=== PATIENT | female | born 1995 | race Caucasian/White ===

== ENCOUNTER → 2016-05-27 | Outpatient (CLI) | payer BC ==
[~2016-05-27] MED LIST: BCPILLS PO; HYDR-5688 PO
--- NOTE | 2016-05-27 13:56 | MAMMOGRAPHY REPORT ---
ULTRASOUND OF LEFT BREAST: 05/27/2016 CLINICAL HISTORY: The patient reports a palpable lump in her left breast for a few months. She feel s that it is less prominent currently than when she first felt it. COMPARISON: No prior exams were available for comparison. TECHNIQUE: Real-time targeted ultrasound of the left breast was performed. FINDINGS: Real-time, high resolution targeted ultrasound was performed of the area of the palpable lump pointe d out by the patient, in the left breast at 1:00, approximately 7 cm from the nipple. Sonographical ly normal tissue is seen in this region, with no suspicious solid or cystic mass seen. IMPRESSION: ACR BI-RADS CATEGORY 1: NEGATIVE No suspicious sonographic abnormality at the site of the palpable left breast lump pointed out by th e patient. There is no sonographic evidence of malignancy. Recommend clinical follow-up. The vazquez ent was verbally notified of the results. Yaneli Jasso M.D. ah/:05/27/2016 11:15:15 Special Needs Librarian: Yaneli Jasso MD, [facility] letter sent: Normal 1/2 BI-RADS Code: ACR BI-RADS Category 1: Negative
== END | disposition home or self-care (01) ==
LOC: C.MAMM 10:56
PROVIDERS: ATTEND Obstetrics & Gynecology
DX: N63 Unspecified lump in breast (principal)

== ENCOUNTER → 2016-06-11 | Outpatient (CLI) | payer BC ==
--- NOTE | 2016-06-11 15:46 | DIAGNOSTIC IMAGING REPORT ---
CHEST 2 VIEWS ROUTINE CLINICAL HISTORY: Cough. COMPARISON STUDY: Chest radiograph October 24, 2012. FINDINGS: Lung volumes are normal. Lungs are clear. There is no pneumothorax or pleural effusion. Cardiac size is normal. Mediastinal contours are normal. There is no evidence of pulmonary edema. IMPRESSION: No acute cardiopulmonary findings. Electronically signed by: Rey Toney M.D. 06/11/2016 3:45 PM Dictated Date/Time: 06/11/2016 3:44 PM
== END | disposition home or self-care (01) ==
LOC: C.RAD1850 15:36
PROVIDERS: ATTEND Family Medicine
DX: R05 Cough (principal)

== ENCOUNTER → 2016-07-09 | Outpatient (CLI) | payer BC ==
--- NOTE | 2016-07-09 11:16 | DIAGNOSTIC IMAGING REPORT ---
ULTRASOUND ABDOMEN COMPLETE CLINICAL HISTORY: Right upper quadrant abdominal pain. COMPARISON STUDY: No priors. TECHNIQUE: Real-time, grayscale, and color flow sonography of the abdomen was performed. Images are reviewed in the transverse and longitudinal planes. FINDINGS: Liver: The liver is normal in size and echotexture. There is no intrahepatic biliary ductal dilatation. The main portal vein is patent. Gallbladder: Small mobile gallstones are identified and there is minimal biliary sludge. The gallbladder is otherwise normal in appearance. There is no gallbladder wall thickening or pericholecystic fluid. A sonographic Yeager's sign is reportedly absent. The common bile duct measures up to 0.2 cm in diameter. Pancreas: Visualized portions of the pancreatic head and body are normal in appearance. Spleen: The spleen is normal in size and echotexture, measuring 11.0 cm in length. Kidneys: The kidneys are normal in size and echotexture. There is no hydronephrosis. The right kidney measures 11.5 cm in length and the left kidney measures 11.2 cm in length. No shadowing calculi are identified. Abdominal vasculature: Visualized portions of the abdominal aorta and IVC are normal in appearance. Ascites: None. IMPRESSION: Cholelithiasis and biliary sludge. There is no sonographic evidence of acute cholecystitis. Electronically signed by: Tejas Hoover M.D. 07/09/2016 11:15 AM Dictated Date/Time: 07/09/2016 11:13 AM
== END | disposition home or self-care (01) ==
LOC: C.ULTR 10:13
PROVIDERS: ATTEND Student in an Organized Health Care Education/Training Program
DX: K80.20 Calculus of gallbladder without cholecystitis without obstruction (principal); R10.11 Right upper quadrant pain

== ENCOUNTER 2016-07-29 05:14 | Observation (INO) | payer BC ==
[2016-07-23 07:42] VITALS: BMI 25.0
[2016-07-29] VITALS (9 sets, daily range): BP systolic 110–152; BP diastolic 71–97; PULSE 54–94; TEMP 36.4–36.9; O2SAT 98–100; Ht 162.6 cm; Wt 66.8 kg
[~2016-07-29] VITALS: Ht 162.6 cm; Wt 66.8 kg
[~2016-07-29 05:14] MED LIST changes: -HYDR-5688 PO
[2016-07-29] MEDS ORDERED: CEFUROXIME IV 1,500 MG in DEXTROSE 5% 100ML IV SCH (06:00)
[2016-07-29] MEDS ORDERED: LACTATED RINGER'S 1000ML 1,000 ML IV SCH (06:00)
[2016-07-29] MEDS ORDERED: BUPIVACAINE 0.5 % 5 MG/1 ML MPF 30ML VIAL ONE (06:31)
[2016-07-29] MEDS ORDERED: SCOPOLAMINE 1.5 MG TDSY TD ONE (06:39)
[2016-07-29] MEDS ORDERED: MIDAZOLAM HCL 1 MG/ML 2ML VIAL ONE (06:43)
[2016-07-29] MEDS ORDERED: FENTANYL CITRATE INJ 50 MCG/1 ML 2 ML VIAL ONE ×2 (06:43→07:18)
[2016-07-29] MEDS ORDERED: HYDROmorphone INJ 2 MG/ML SYR/VIAL ONE (06:43)
[2016-07-29] MEDS ORDERED: KETAMINE HCL INJ 50 MG/ML 10 ML VIAL ONE (06:43)
--- NOTE | 2016-07-29 06:46 | History & Physical Bridge Note ---
H&P Re-Evaluation Bridge Note: I have examined the patient, reviewed the History & Physical and in the interval since the performance of the History & Physical I have noted the following changes of clinical significance: No changes noted
[2016-07-29] MEDS ORDERED: DiphenhydrAMINE HCL 50 MG/ML VIAL ONE (07:07)
[2016-07-29] MEDS ORDERED: METOCLOPRAMIDE HCL INJ 5 MG/ML 2 ML VIAL ONE (07:07)
[2016-07-29] MEDS ORDERED: DEXAMETHASONE SOD INJ 4 MG/ML VIAL ONE (07:07)
[2016-07-29] MEDS ORDERED: ONDANSETRON INJ 2 MG/ML 2 ML VIAL ONE (07:07)
[2016-07-29] MEDS ORDERED: PROPOFOL IV EMULSION 10 MG/ML 20 ML VIAL IV ONE (07:30)
[2016-07-29] MEDS ORDERED: NEOSTIGMINE METHYLSULFATE 5 MG/5 ML SYR ONE (07:30)
[2016-07-29] MEDS ORDERED: GLYCOPYRROLATE INJ 0.2 MG/ML VIAL ONE (07:30)
[2016-07-29] MEDS ORDERED: LIDOCAINE HCL 2% 2 ML VIAL (20MG/ML) ONE (07:30)
[2016-07-29] MEDS ORDERED: ROCURONIUM BROMIDE 10 MG/ML 5 ML VIAL ONE (07:30)
[2016-07-29] MEDS ORDERED: MoRPHine SULFATE 4 MG/ML 1 ML CARP\\VIAL IV PRN (08:00)
[2016-07-29] MEDS ORDERED: PROMETHAZINE HCL INJ 25 MG in SODIUM CHLORIDE 0.9% 50ML 50 ML IV PRN (08:00)
[2016-07-29] MEDS ORDERED: HYDROCODONE/ACETAMOPHEN 5/325MG TAB PO PRN ×2 (08:00)
[2016-07-29] MEDS ORDERED: MoRPHine SULFATE 2 MG/ML CARP IV PRN (08:00)
[2016-07-29] MEDS ORDERED: ONDANSETRON INJ 2 MG/ML 2 ML VIAL IV PRN ×2 (08:00→08:15)
[2016-07-29] MEDS ORDERED: LACTATED RINGER'S 1000ML 1,000 ML IV PRN (08:02)
--- NOTE | 2016-07-29 08:09 | OPERATIVE REPORT ---
DATE OF OPERATION: 07/29/2016 NAME OF OPERATION: Laparoscopic cholecystectomy. PREOPERATIVE DIAGNOSIS: Chronic cholecystitis. POSTOPERATIVE DIAGNOSIS: Same. STAFF SURGEON: Dr. Tang. ANESTHESIA: General. DROP PIT WORKER: Dayron Mccormick PA-C. PROCEDURE: The patient was brought in the operating room and placed on the operating table in supine position. Pneumatic stockings and orogastric tube were placed. Her abdomen was prepped and draped in usual fashion. 0.5% plain Marcaine was used to anesthetize skin and subcutaneous tissue. Incision was made just above the umbilicus, carrying dissection down identifying the fascia, placing a Veress needle producing pneumoperitoneum. Initially a 5 mm port was placed and then an 11 mm port at this level and then under visualization three 5 mm ports were placed, 1 cephalad and 2 laterally. Gallbladder was grasped and retracted. The bile was aspirated from the gallbladder. Dissection was carried out at the herbert hepatis, identifying scar tissue consistent with chronic inflammation. The cystic artery and cystic duct were identified and clipped and transected. The patient also had a small branch associated with the cystic duct which was clipped. The gallbladder was dissected away from the liver bed in the usual fashion. It was then placed in an Endobag. After appropriate irrigation and hemostasis the Endobag was removed through the umbilical site. All ports were then removed. The fascia at the umbilicus closed using interrupted 0 Vicryl suture. The skin was reapproximated using subcuticular 4-0 Monocryl and Dermabond. The patient was transferred to recovery room in stable condition. I attest to the content of the Intraoperative Record and any orders documented therein. Any exception s are noted below.
[2016-07-29] MEDS ORDERED: HYDROmorphone INJ 1 MG/ML SYR IV PRN (08:15)
[2016-07-29] MEDS ORDERED: KETOROLAC TROMETHAMINE 30 MG/ML VIAL IV. PRN (08:15)
[2016-07-29] MEDS ORDERED: DiphenhydrAMINE HCL 50 MG/ML VIAL IV PRN (08:15)
[2016-07-29] MEDS ORDERED: HYDR-5688 PO (08:19)
--- NOTE | 2016-07-29 08:21 | Discharge Instructions ---
Discharge Instructions Date of Service Jul 29, 2016. Admission Reason for Admission: Biliary Colic, Biliary Dyskinesia Discharge Discharge Diagnosis / Problem: chronic cholecystitis Discharge Goals Goal(s): Decrease discomfort, Improve function, Improve disease control Activity Recommendations Activity Limitations: as noted below Lifting Limitations: no more than 25 pounds Exercise/Sports Limitations: until after follow-up appointment May Resume Sexual Activity: when tolerated Shower/Bathe: tomorrow Driving or Machine Use: resume 3 days after discharge SPECIAL CARE INSTRUCTIONS: * Cover incisions and change daily for comfort/drainage. may leave uncovered with dermabond * May use ibuprofen for pain as tolerated. * Expect some swelling and bruising. Call your doctor if: * Temperature above 101 degrees * Pain not relieved by pain medicine ordered * There is increased drainage or redness from any incision * You have any unanswered questions or concerns [phone]. FOLLOW UP VISIT: If not already scheduled, please call the office for a follow-up visit. for 1-2 weeks- checkup- no sutures to remove OFFICE PHONE NUMBER: Dr. Tang Office . Current Hospital Diet Patient's current hospital diet: Regular Diet Discharge Diet Recommended Diet: Regular Diet Procedures Procedures Performed: Laparoscopic Cholecystectomy Pending Studies Studies pending at discharge: no Medical Emergencies . Who to Call and When: Medical Emergencies: If at any time you feel your situation is an emergency, please call 911 immediately. . Non-Emergent Contact Non-Emergency issues call your: Primary Care Provider, Surgeon . "Provider Documentation" section prepared by Len Tang. . VTE Core Measure Inpt VTE Proph given/why not?: SCD's
--- NOTE | 2016-07-29 08:22 | Anesthesiology Progress Note ---
Anesthesia Post Op Note Date & Time Jul 29, 2016 at 08:22 Vital Signs Pain Intensity: 0 Vital Signs Past 12 Hours Date Time Temp Pulse Resp B/P (MAP) Pulse Ox O2 Delivery O2 Flow Rate FiO2 07/29/16 08:15 133/100 07/29/16 08:14 67 19 100 07/29/16 08:14 67 19 07/29/16 08:10 133/97 07/29/16 08:09 90 14 07/29/16 08:09 88 14 100 07/29/16 08:05 134/88 07/29/16 08:04 36.4 99 16 133/86 100 Mask 10 07/29/16 08:04 154 18 07/29/16 08:04 100 18 133/86 100 07/29/16 05:39 36.9 94 20 121/80 (94) 99 Room Air Notes Mental Status: alert / awake / arousable, participated in evaluation Pt Amnestic to Procedure: Yes Nausea / Vomiting: adequately controlled Pain: adequately controlled Airway Patency, RR, SpO2: stable & adequate BP & HR: stable & adequate Hydration State: stable & adequate Anesthetic Complications: no major complications apparent Pt doing very well. No nausea.
[2016-07-29] MEDS: FENTANYL CITRATE INJ 50 MCG/1 ML 2 ML VIAL IV PRN ×2 (08:42→08:47)
[2016-07-29] MEDS ORDERED: IV FLUIDS COMPLETED PRN (09:00)
--- NOTE | 2016-07-29 09:19 | [facility] Post Operative Brief Note ---
Immediate Operative Summary Operative Date Jul 29, 2016. Pre-Operative Diagnosis Biliary colic & Biliary dyskinesia Post-Operative Diagnosis Biliary colic & Biliary dyskinesia Procedure(s) Performed Laparoscopic Cholecystectomy Surgeon Dr. Marisela Tang Founder Chairman And Chief Creative Officer Surgeon(s) Julius Mccormick PA-C Estimated Blood Loss 5mL Findings scar tissue in area of cystic duct Specimens A: Gallbladder Anesthesia gen Complication(s) None Disposition Recovery Room / PACU
[2016-07-29] MEDS ORDERED: PROMETHAZINE HCL INJ 12.5 MG in SODIUM CHLORIDE 0.9% 50ML 50 ML IV PRN (10:00)
[2016-07-29] MEDS: KETOROLAC TROMETHAMINE 30 MG/ML VIAL IV. SCH ×3 (10:28→21:40)
[2016-07-29] MEDS: LACTATED RINGER'S 1000ML 1,000 ML IV SCH ×2 (10:29→20:47)
[2016-07-29] MEDS: CEFUROXIME IV 1,500 MG in DEXTROSE 5% 100ML 100 ML IV SCH ×2 (14:14→21:40)
[2016-07-30 03:20] VITALS: BP 115/73; PULSE 65; TEMP 36.6; O2SAT 99
[2016-07-30] MEDS: KETOROLAC TROMETHAMINE 30 MG/ML VIAL IV. SCH (03:49)
[2016-07-30] MEDS: CEFUROXIME IV 1,500 MG in DEXTROSE 5% 100ML 100 ML IV SCH (05:42)
[2016-07-30 06:05] LABS: HEMATOCRIT 37.4 % (37-47); MEAN CELL VOLUME 92.1 fL (80-100); MEAN CORPUSCULAR HGB CONC 32.6 g/dl (32-36); MEAN PLATELET VOLUME 9.9 fL (7.4-10.4); PLATELET COUNT 240 K/uL (130-400); RED BLOOD COUNT 4.06 M/uL (4.2-5.4); WHITE BLOOD COUNT 9.07 K/uL (4.8-10.8)
[2016-07-30 06:40] LABS: BUN/CREATININE RATIO 13.1 (10-20); CALCIUM 8.7 mg/dl (8.5-10.1); CREATININE 0.91 mg/dl (0.60-1.20); POTASSIUM 3.8 mmol/L (3.5-5.1)
[2016-07-30 06:42] LABS: ALB/GLOB RATIO 1.2 (0.9-2)
--- NOTE | 2016-07-30 07:29 | DISCHARGE SUMMARY ---
PRINCIPAL DIAGNOSIS: Biliary colic. PROCEDURES: The patient underwent laparoscopic cholecystectomy. HISTORY OF PRESENT ILLNESS: The patient is a 20-year-old female who has been having abdominal pain which was felt to be related to her gallbladder with a history of gallstones. HOSPITAL COURSE: The patient was brought into the hospital on 07/29/2016 where she was taken to the operating room and underwent laparoscopic cholecystectomy. She did quite well and was felt stable for discharge home today to be followed in the surgical clinic within 1-2 weeks.
[2016-07-30 07:43] VITALS: BP 115/73; PULSE 65; TEMP 36.6; O2SAT 99
[2016-07-30 08:10] VITALS: BP 105/63; PULSE 75; TEMP 37; O2SAT 98
--- NOTE | 2016-07-30 09:15 | Anesthesiology Progress Note ---
Anesthesia Post Op Note Date & Time Jul 30, 2016 at 09:13 Vital Signs Pain Intensity: 1.0 Vital Signs Past 12 Hours Date Time Temp Pulse Resp B/P (MAP) Pulse Ox O2 Delivery O2 Flow Rate FiO2 07/30/16 08:10 37.0 75 18 105/63 (77) 98 Room Air 07/30/16 07:43 36.6 65 16 99 Room Air 07/30/16 07:25 Room Air 07/30/16 03:20 36.6 65 16 115/73 (87) 99 Room Air 07/30/16 00:07 Room Air 07/29/16 22:51 36.8 73 16 116/79 (91) 98 Room Air Notes Mental Status: alert / awake / arousable, participated in evaluation
== END 2016-07-30 08:09 | disposition home or self-care (01) ==
LOC: C.ACU 05:14 → C.MSW 07:55 → ENRESERV 08:46
PROVIDERS: ADMIT Surgery; ATTEND Surgery
DX: K80.20 Calculus of gallbladder without cholecystitis without obstruction (principal); N92.0 Excessive and frequent menstruation with regular cycle

== ENCOUNTER → 2016-12-28 | Outpatient (CLI) | payer BC ==
[~2016-12-28] MED LIST changes: +HYDR-5688 PO
[2016-12-28 15:06] LABS: URINE APPEARANCE CLEAR (CLEAR); URINE BILIRUBIN NEG (NEG); URINE COLOR YELLOW; URINE EPITHELIAL CELL AUTO >30 /lpf (0-5); URINE NITRITE NEG (NEG); URINE SPECIFIC GRAVITY 1.028 (1.000-1.030); UROBILINOGEN NEG (NEG)
[2016-12-28 15:11] LABS: MANUAL MICROSCOPIC REQUIRED? NO; REVIEW REQ? YES
[2016-12-31 01:35] LABS: CHLAMYDIA TRACH RNA*** NOT DETECTED (NOT DETECTED); GC (NEIS GONORRHOEAE)RNA** NOT DETECTED (NOT DETECTED); TRICHOMONAS VAGINALIS RNA** NOT DETECTED (NOT DETECTED)
== END | disposition home or self-care (01) ==
LOC: C.LABSPEC 13:57
PROVIDERS: ATTEND Physician Assistant
DX: L29.8 Other pruritus (principal); R39.9 Unspecified symptoms and signs involving the genitourinary system